=== PATIENT | female | born 1995 | race Caucasian/White ===

== ENCOUNTER 2023-08-18 19:13 | Emergency (ER) | payer OTHER ==
[2023-08-18 19:17] VITALS: BP 107/72; PULSE 74; RESP 18; TEMP 98; BMI 22.4
== END 2023-08-18 20:32 | disposition home or self-care (01) ==
LOC: JERFT 19:13
DX: S92.902A Unspecified fracture of left foot, initial encounter for closed fracture (principal); M79.672 Pain in left foot; X50.1XXA Overexertion from prolonged static or awkward postures, initial encounter
CPT/HCPCS: 73610-TC-LT-FY; 73630-TC-LT; 99283-25